=== PATIENT | female | born 1960 | race Caucasian/White ===

== ENCOUNTER → 2016-09-03 | Outpatient (CLI) | payer MEDICARE, MEDICAID ==
[~2016-09-03] MED LIST: ALPRAZOLAM2 MG PO; BUPROPION HYDR150 M5 PO; CLARITIN10 MG PO; DAILY VALUE1 EACH PO; FETZIMA40 M1 PO; GABAPENTIN600 MG PO; GUAIFENESIN600 MG PO; LAMOTRIGINE200 M2 PO; LAMOTRIGINE200 MG PO; PERCOCET 325 MG1 TA2 PO; PREDNISONE50 MG PO; RESTORIL30 M1 PO; VENTOLIN H0.09 MG/AC INH
== END | disposition home or self-care (01) ==
LOC: RAD 13:58
DX: M48.02 Spinal stenosis, cervical region (principal); M50.20 Other cervical disc displacement, unspecified cervical region

== ENCOUNTER → 2016-09-18 | Outpatient (CLI) | payer MEDICARE, MEDICAID | END | disposition home or self-care (01) | LOC: MRI 08:36 | DX: M47.892 Other spondylosis, cervical region (principal); M48.02 Spinal stenosis, cervical region; M50.20 Other cervical disc displacement, unspecified cervical region ==

== ENCOUNTER → 2018-08-23 | Outpatient (CLI) | payer MEDICARE, MEDICAID ==
[~2018-08-23] MED LIST changes: +ABILIFY2 MG PO; +HYDR25T PO; +LAMICTAL200 MG PO; +LISINOPRIL20 MG PO; +LOPRESSOR25 MG PO; +MIDODRINE HCL5 M1 PO; +OXYBUTYNIN CHLOR5 M1 PO; +VITAMIN D50000 UNIT PO; +XANAX2 M1 PO
--- NOTE | ~2018-08-23 | HM ---
[place], [place] HOLTER MONITOR REPORT NAME: SAMANTHA BELTRAN UNIT #: [id number] ROOM: DOCTOR: LALO NEWMAN [facility],GREGG BIRTHDATE: [birth year] DOS: 08/30/2018 HOLTER MONITOR REPORT PROCEDURE: A 48-hour Holter monitor recording. FINDINGS: No extreme bradycardia noted. The patient in sinus tachycardia, rate of 150 and the frequent PVCs. No sustained or nonsustained ventricular tachycardia noted. No significant ventricular ectopy noted. No conduction abnormalities noted. The Holter monitor appears to be fairly benign except for sinus tachycardia and frequent PVCs, may suggest small dose of beta blocking agents and exercise program to avoid the stimulants like caffeine, tobacco or alcohol and chocolates, and exercise program is educated. Counselling the patient fairly and individual. Dairy is not well maintained. GREGG MAY MD CM:HOLTER:HOLTER MONITOR REPORT [id number] GREGG MAY MD [facility]
== END ==
LOC: CARD 09:27
DX: R00.2 Palpitations (principal)

== ENCOUNTER → 2021-03-01 | Outpatient (CLI) | payer OTHER, MEDICAID | END | disposition home or self-care (01) | LOC: COVID19 15:51 | PROVIDERS: ATTEND Podiatrist Foot & Ankle Surgery | DX: Z11.52 Encounter for screening for COVID-19 (principal) ==

== ENCOUNTER → 2023-07-21 | Outpatient (CLI) | payer OTHER, MEDICAID | LOC: CARD 00:31 | PROVIDERS: ATTEND Internal Medicine Cardiovascular Disease | DX: I11.9 Hypertensive heart disease without heart failure (principal); R00.2 Palpitations ==